=== PATIENT | female | born 1970 | race Caucasian/White ===

== ENCOUNTER → 2017-04-07 | Outpatient (CLI) | payer BC | LOC: KOH-I 16:26 | DX: M25.561 Pain in right knee (principal) | CPT/HCPCS: 73562 ==

== ENCOUNTER → 2017-04-15 | Outpatient (CLI) | payer BC | LOC: KOH-I 16:26 | DX: S82.001A Unspecified fracture of right patella, initial encounter for closed fracture (principal); M25.461 Effusion, right knee | CPT/HCPCS: 73700 ==

== ENCOUNTER 2021-06-11 11:00 | Emergency (ER) | payer OTHER ==
[~2021-06-11] VITALS: Ht 162.6 cm; Wt 115.2 kg
[~2021-06-11 11:00] MED LIST: KLONOPIN TAB 00.5 MG PO; NORCO 5-325 TA1 EACH PO; SYNTHROID100 MCG PO; VIT D PO
== END 2021-06-11 17:05 | disposition home or self-care (01) ==
LOC: ER1 11:00
DX: U07.1 COVID-19 (principal); Z23 Encounter for immunization; E07.9 Disorder of thyroid, unspecified; Z88.8 Allergy status to other drugs, medicaments and biological substances; Z91.041 Radiographic dye allergy status; Z79.899 Other long term (current) drug therapy
CPT/HCPCS: 99283; M0243